=== PATIENT | female | born 1980 | race Caucasian/White ===

== ENCOUNTER → 2016-09-07 | Outpatient (CLI) | payer SELFPAY | LOC: LAB 09:18 | PROVIDERS: ATTEND Nurse Practitioner Family | DX: R10.11 Right upper quadrant pain (principal) ==

== ENCOUNTER → 2016-09-11 | Outpatient (CLI) | payer SELFPAY ==
--- NOTE | 2016-09-11 10:04 | US ---
EXAM DESCRIPTION: Abdomen,Complete CLINICAL HISTORY: RUQ PAIN COMPARISON: None. TECHNIQUE: Real-time sonographic images of the abdomen are obtained. FINDINGS: Pancreas is unremarkable. The right lobe of the liver measures 15.5 cm. The liver is diffusely homogeneous and normal in echogenicity. No focal hepatic mass is seen. The gallbladder is contracted and contains multiple foci of increased echogenicity with posterior acoustic shadowing measuring up to 2.4 cm greatest diameter. There is mild gallbladder wall thickening measures 3.5 mm. No pericholecystic fluid is seen. The common bile duct measures 3.0 mm in greatest diameter. The right kidney measures 12.6 x 4.5 x 5.4 cm. The left kidney measures 11 x 3 x 6.2 x 5.3 cm. Both kidneys show normal renal cortical echogenicity. No hydronephrosis is seen. The spleen measures 11.6 cm. Visualized IVC and abdominal aorta are within normal limits. IMPRESSION: Cholelithiasis. There is borderline gallbladder wall thickening that could be secondary to poorly distended gallbladder versus acute cholecystitis. Electronically signed by: Juan Ramon Cochran MD 09/11/2016 10:03 AM CDT
== END | disposition home or self-care (01) ==
LOC: US 08:26
PROVIDERS: ATTEND Nurse Practitioner Family
DX: R10.11 Right upper quadrant pain (principal)

== ENCOUNTER → 2016-09-19 | Outpatient (CLI) | payer SELFPAY | END | disposition home or self-care (01) | LOC: LAB.O 14:48 | PROVIDERS: ATTEND Surgery | DX: Z01.812 Encounter for preprocedural laboratory examination (principal) ==

== ENCOUNTER 2016-09-20 07:29 | Day surgery (SDC) | payer SELFPAY ==
[~2016-09-20 07:29] MED LIST: BUPIVACAINE 0.25% W/EPI 50 ML VIAL INJ ONE; HEPARIN SODIUM (PORCINE) 10,000 UNITS/ML VIAL ONE; LACTATED RINGERS 1,000 ML ONE; SODIUM CHL 0.9% 100ML MINI-BAG 100 ML IVPB ONE; ceFAZolin SODIUM 1 GM VIAL ONE
[2016-09-20] MEDS ORDERED: fentaNYL CITRATE INJ 50 MCG/ML AMP ONE (07:49)
[2016-09-20] MEDS ORDERED: LIDOCAINE 2 % GEL 5 ML TUBE TOP ONE (07:49)
[2016-09-20] MEDS ORDERED: ROCURONIUM BROMIDE 10 MG/ML VIAL ONE (07:49)
[2016-09-20] MEDS: MORPHINE SULFATE INJ 10 MG/ML VIAL ONE ×2 (10:31→10:45)
--- NOTE | 2016-09-20 10:37 | OP ---
DATE OF PROCEDURE: 09/20/16 PREOPERATIVE DIAGNOSIS: 1. Symptomatic cholelithiasis. POSTOPERATIVE DIAGNOSIS: 1. Symptomatic cholelithiasis. 2. Chronic cholecystitis. PROCEDURE: 1. Laparoscopic cholecystectomy with intraoperative cholangiography using fluoroscopy. SURGEON: Benito Bain MD. 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 ANESTHESIA: Local infiltration of 0.25% Marcaine with epinephrine and general endotracheal anesthesia. INDICATION: The patient is a 35-year-old female with approximately a one month history of significant right upper quadrant pain with radiation to the back. There has been some history of bloating and fatty food intolerance in the past. There is no history of hepatitis or jaundice. She has sonographically diagnosed cholelithiasis. The patient was brought to the [facility] today for cholecystectomy after the risks, benefits and alternatives to the procedure were discussed and accepted. FINDINGS: There were multiple adhesions to the gallbladder for the full length of the gallbladder. These were from the omentum and the duodenum. Intraoperative cholangiography revealed free flow into the duodenum with no filling defects or strictures noted. The gallbladder wall was relatively thin- walled with multiple stones within it. There were midline adhesions below the umbilicus, likely from her section, and also some adhesions from the hepatic flexure of the colon to the right pericolic sidewall. No other obvious pathology was identified. DESCRIPTION OF PROCEDURE: After adequate general endotracheal anesthesia was obtained, the patient was prepped and draped in the usual sterile manner. Surgical time-out was taken. An incision was then made above the umbilicus vertically after local infiltration of anesthesia was obtained. Dissection was carried down through the skin and subcutaneous tissue using blunt dissection. Traction sutures were placed on either side of the midline. A small incision was made in the midline fascia and the peritoneum was opened bluntly. Stas trocar was introduced under direct vision into the abdominal cavity and fixed in place with the 20 mL balloon. CO2 was then insufflated and the abdomen was inspected with the previously noted findings using the laparoscope. The patient was then placed in reverse Trendelenburg position, turned to the left side. The upper abdominal ports were placed under direct vision. The gallbladder was grasped, retracted anteriorly. The adhesions to the gallbladder were taken down using electrocautery and blunt dissection. The neck of the gallbladder was retracted laterally. The triangle of Calot was then explored using blunt dissection. The cystic duct and cystic artery were identified and isolated. The cystic duct was hemoclipped once proximally. The cystic artery was hemoclipped twice proximally and once distally. A small incision was made in the cystic duct. The cholangiogram catheter was introduced through a separate stab wound in the right upper quadrant, introduced into the cystic duct and clipped in place. Cholangiograms were then taken using fluoroscopy which revealed free flow into the duodenum with no filling defects or strictures noted. When this was done, the cystic duct catheter was removed. The cystic duct was hemoclipped three times distally and divided between the hemoclips. The cystic artery was divided. Two other pulsatile vascular structures were identified and clipped and then the gallbladder was then dissected free from the gallbladder bed of the liver using electrocautery. A small amount of oozing was controlled using electrocautery. The gallbladder was removed from the infraumbilical port site in the usual manner under direct vision. When this was done, the subhepatic space and subphrenic space were irrigated copiously with saline. The effluent was noted to be clear. The gallbladder bed of the liver was again inspected and had good hemostasis. The joss hepatis was inspected and no bleeding or bile leak was identified. The upper abdominal ports were removed under direct vision and good hemostasis was noted. At this point, the CO2, the laparoscope and the supraumbilical port were removed under direct vision. The supraumbilical port site fascia was approximated with a single [id number]-bi-[id number] suture of 0 Vicryl. Subcutaneous tissue was irrigated with saline. Skin edges were approximated with 4-0 Vicryl subcuticular sutures, benzoin and Steri-Strips. Sterile dressings were applied. The patient was awakened and taken to the Recovery Room in good and stable condition. Estimated blood loss was less than 50 mL. All sponge, needle and instrument counts were correct. #[id number] [facility]
[2016-09-20] MEDS ORDERED: METOCLOPRAMIDE HCL INJ 10 MG/2 ML VIAL ONE (11:03)
[2016-09-20 11:07] VITALS: O2SAT 96
[2016-09-20] MEDS ORDERED: HYDROcodone 5MG/APAP 325MG 1 EA TAB ONE (11:19)
[2016-09-20] MEDS ORDERED: PROPOFOL 200 MG/20 ML VIAL IV ONE (12:00)
[2016-09-20] MEDS ORDERED: ATROPINE SULFATE 0.4 MG/ML 1ML VIAL IV ONE (12:00)
[2016-09-20] MEDS ORDERED: ePHEDrine SULF 50 MG/ML IV ONE (12:00)
[2016-09-20] MEDS ORDERED: NEOSTIGMINE METHYLSULFATE 1 MG/ML ML IV ONE (12:00)
[2016-09-20 12:11] VITALS: TEMP 98.1
[2016-09-20 12:31] VITALS: BP 121/71
== END 2016-09-20 12:05 | disposition home or self-care (01) ==
LOC: AMB 07:29
PROVIDERS: ATTEND Surgery
DX: K80.10 Calculus of gallbladder with chronic cholecystitis without obstruction (principal); Z87.891 Personal history of nicotine dependence

== ENCOUNTER → 2018-01-30 | Outpatient (CLI) | payer OTHER | LOC: LAB.O 13:42 | PROVIDERS: ATTEND Plastic Surgery | DX: R77.0 Abnormality of albumin (principal) ==

== ENCOUNTER → 2018-05-15 | Outpatient (CLI) | payer OTHER ==
--- NOTE | 2018-05-17 20:32 | CT ---
EXAM DESCRIPTION: CT ABDOMEN AND PELVIS WITHOUT AND WITH CONTRAST CLINICAL HISTORY: R19.00 mass on the right side, post plastic surgery, pain and swelling COMPARISON: Previous abdominal sonogram September 11, 2016 TECHNIQUE: CT of the abdomen and pelvis are performed prior to and during IV bolus administration of 100 mL of Isovue 300. Oral contrast media is administered as well. FINDINGS: CT abdomen The lung bases are clear of infiltrate. Bilateral breast implants appear symmetrical. Liver is normal in size and parenchymal appearance. Gallbladder is surgically absent. Spleen, pancreas, and kidneys are unremarkable. Strandy changes in the subcutaneous fat of the abdominal wall may be postoperative. No renal stones or hydronephrosis. There is no lymphadenopathy, inflammation, or free fluid observed. CT pelvis No inflammation is seen around the cecum or terminal ileum or sigmoid colon. Appendix is normal in appearance. No stones are seen in the distal ureters or bladder. Normal pelvic small bowel loops. No fracture or lytic lesion of the osseous structures. Postcontrast images show normal enhancement of the pelvic vessels. Uterus and ovaries appear normal. Coronal and sagittal reformatted images confirm the findings. IMPRESSION: No acute upper abdominal process. No acute process in the pelvis. This exam was performed according to our departmental dose-optimization program, which includes automated exposure control, adjustment of the mA and/or kV according to patient size and/or use of iterative reconstruction technique. Electronically signed by: Saul Pittman MD 05/17/2018 8:31 PM PROCEDURES RN
== END ==
LOC: CT 08:47
PROVIDERS: ATTEND Plastic Surgery
DX: R19.00 Intra-abdominal and pelvic swelling, mass and lump, unspecified site (principal)